=== PATIENT | female | born 1985 | race African-American/Black ===

== ENCOUNTER 2017-01-10 21:35 | Inpatient (IN) ==
[2017-01-10] MEDS ORDERED: LR 4,000 ML ONE (22:00)
[2017-01-10] MEDS ORDERED: GENTAMICIN 80 MG/NS 80 MG/50 ML IVPB IV ONE (22:11)
[2017-01-10] MEDS ORDERED: CLINDAMYCIN 900 MG/NS 900 MG/50 ML IVPB IV ONE (22:11)
[2017-01-10] MEDS ORDERED: PEPCID PO ONE (22:14)
[2017-01-10] MEDS ORDERED: REGLAN IV ONE (22:16)
[2017-01-10] MEDS ORDERED: SODIUM CHLORIDE 0.9% INJ ONE (22:16)
[2017-01-10] MEDS ORDERED: BICITRA PO ONE (22:16)
[2017-01-10] MEDS ORDERED: PEPCID IV ONE (22:16)
[2017-01-10 22:18] LABS: URINE SOURCE VOIDED
[2017-01-10] MEDS: LR 1,000 ML IV SCH ×2 (22:21→23:59)
[2017-01-10 22:22] LABS: BILIRUBIN URINE NEGATIVE (NEGATIVE); BLOOD URINE NEGATIVE (NEGATIVE); CLARITY CLEAR (CLEAR); COLOR YELLOW; GLUCOSE URINE NEGATIVE (NEGATIVE); LEUKOCYTES URINE TRACE (NEGATIVE); NITRITE URINE NEGATIVE (NEGATIVE); PROTEIN URINE NEGATIVE (NEGATIVE); UROBILINOGEN URINE NORMAL
[2017-01-10 22:28] LABS: MANUAL DIFF NEEDED? NO
[2017-01-10 22:29] LABS: BASO% 0.1 % (0.0-0.8); EOS# 0.15 X1000 (0.0-0.7); HEMATOCRIT 36.7 % (37.0-47.0); HEMOGLOBIN 12.6 g/dL (12.0-16.0); IMM GRAN# 0.13 X1000 (0.0-0.04); IMM GRAN% 0.9 % (0.0-0.5); LYMPH# 1.92 X1000 (1.2-3.4); LYMPH% 13.2 % (20.5-51.1); MCH 31.3 PG (27-31); MCHC 34.3 g/dL (33-37); MCV 91.1 FL (81-99); MONO% 7.5 % (1.7-9.3); MPV 12.7 FL (7.4-10.4); NEUT% 77.3 % (42.2-75.2); PLT 133 X1000 (130-400); RBC 4.03 XMIL (4.2-5.4)
--- NOTE | 2017-01-10 23:27 | OB/GYN PROGRESS NOTE ---
Progress Note OB - . OB Progress Note: Laboratory Results - last 24 hr 01/10/17 01/10/17 01/10/17 21:42 22:09 22:09 WBC 14.60 H RBC 4.03 L Hgb 12.6 Hct 36.7 L MCV 91.1 MCH 31.3 H MCHC 34.3 RDW Std Deviation 13.9 Plt Count 133 MPV 12.7 H Immature Gran % (Auto) 0.9 H Neut % (Auto) 77.3 H Lymph % (Auto) 13.2 L [place] % (Auto) 7.5 Eos % (Auto) 1.0 Baso % (Auto) 0.1 Immature Gran # (Auto) 0.13 H Neut # (Auto) 11.28 H Lymph # (Auto) 1.92 [place] # (Auto) 1.10 H Eos # (Auto) 0.15 Baso # (Auto) 0.02 Urine Source VOIDED Urine pH 7.0 Ur Specific [place] 1.010 Urine Protein NEGATIVE Urine Ketones TRACE Urine Blood NEGATIVE Urine Nitrite NEGATIVE Urine Bilirubin NEGATIVE Urine Urobilinogen NORMAL Urine WBC TRACE A Urine Glucose NEGATIVE RPR NON-REACTIVE Patient noted to have late decels down to 90s from 150s julio césar every 1-2 minutes. Patient given bolus, oxygen and placed in left lateral position. Late decels resolved to category 1 tracing. Cervix: 2/60/-2 A/P: 31yo @ 36w6d now with Category 1 tracing -continue to monitor -continue IVF and oxygen Debbei Garcia MD COMPREHENSIVE ADVISOR
[2017-01-10 23:43] LABS: UR AMPHETAMINES QUAL NONE DETECTED (NONE DETECT); UR BARBITUATES QUAL NONE DETECTED (NONE DETECT); UR BENZODIAZEPIN QUAL NONE DETECTED (NONE DETECT); UR CANNABINOIDS QUAL NONE DETECTED (NONE DETECT); UR COCAINE QUAL NONE DETECTED (NONE DETECT); UR MDMA QUAL NONE DETECTED (NONE DETECT); UR METHADONE QUAL NONE DETECTED (NONE DETECT); UR METHAMPHETAMINE QUAL NONE DETECTED (NONE DETECT); UR OPIATES QUAL NONE DETECTED (NONE DETECT); UR OXYCODONE QUAL NONE DETECTED (NONE DETECT); UR PCP QUAL NONE DETECTED (NONE DETECT); UR TCA QUAL NONE DETECTED (NONE DETECT)
[2017-01-10] MEDS: STADOL IV PRN (23:58)
[2017-01-11] MEDS: STADOL IV PRN (06:03)
[2017-01-11] MEDS ORDERED: PITOCIN 30 UNITS/LR 30 UNITS/500 ML IV.SOLN IV SCH (08:56)
--- NOTE | 2017-01-11 09:24 | OB/GYN PROGRESS NOTE ---
Progress Note OB - . OB Progress Note: Vital Signs - 24 hr 01/11/17 07:00 Temperature 97 F L Pulse Rate 85 Respiratory Rate 20 Blood Pressure 118/76 O2 Sat by Pulse Oximetry 100 Laboratory Results - last 24 hr 01/10/17 01/10/17 01/10/17 21:42 21:42 22:09 WBC RBC Hgb Hct MCV MCH MCHC RDW Std Deviation Plt Count MPV Immature Gran % (Auto) Neut % (Auto) Lymph % (Auto) [place] % (Auto) Eos % (Auto) Baso % (Auto) Immature Gran # (Auto) Neut # (Auto) Lymph # (Auto) [place] # (Auto) Eos # (Auto) Baso # (Auto) Urine Source VOIDED Urine pH 7.0 Ur Specific [place] 1.010 Urine Protein NEGATIVE Urine Ketones TRACE Urine Blood NEGATIVE Urine Nitrite NEGATIVE Urine Bilirubin NEGATIVE Urine Urobilinogen NORMAL Urine WBC TRACE A Urine Glucose NEGATIVE Urine Opiates Screen NONE DETECTED Ur Oxycodone Screen NONE DETECTED Urine Methadone Screen NONE DETECTED Ur Barbituates Screen NONE DETECTED Ur Tricyclics Screen NONE DETECTED Ur Phencyclidine Scrn NONE DETECTED Ur Amphetamines Screen NONE DETECTED U Methamphetamines Scrn NONE DETECTED Urine MDMA Screen NONE DETECTED U Benzodiazepines Scrn NONE DETECTED Urine Cocaine Screen NONE DETECTED U Cannabinoids Screen NONE DETECTED RPR NON-REACTIVE Blood Type Antibody Screen 01/10/17 01/10/17 22:09 22:09 WBC 14.60 H RBC 4.03 L Hgb 12.6 Hct 36.7 L MCV 91.1 MCH 31.3 H MCHC 34.3 RDW Std Deviation 13.9 Plt Count 133 MPV 12.7 H Immature Gran % (Auto) 0.9 H Neut % (Auto) 77.3 H Lymph % (Auto) 13.2 L [place] % (Auto) 7.5 Eos % (Auto) 1.0 Baso % (Auto) 0.1 Immature Gran # (Auto) 0.13 H Neut # (Auto) 11.28 H Lymph # (Auto) 1.92 [place] # (Auto) 1.10 H Eos # (Auto) 0.15 Baso # (Auto) 0.02 Urine Source Urine pH Ur Specific [place] Urine Protein Urine Ketones Urine Blood Urine Nitrite Urine Bilirubin Urine Urobilinogen Urine WBC Urine Glucose Urine Opiates Screen Ur Oxycodone Screen Urine Methadone Screen Ur Barbituates Screen Ur Tricyclics Screen Ur Phencyclidine Scrn Ur Amphetamines Screen U Methamphetamines Scrn Urine MDMA Screen U Benzodiazepines Scrn Urine Cocaine Screen U Cannabinoids Screen RPR Blood Type A POSITIVE Antibody Screen NEGATIVE Patient continues to report contractions. Cervix: /-2 A/P: 31yo @ 37w0d in latent labor -augment labor with pitocin due to non-reassuring heart tracing Debbie Garcia MD PROTECTIVE SIGNAL OPERATOR
[2017-01-11] MEDS ORDERED: FENTANYL-BUPIV-NS 2 MCG-0.1% 200 ML EPIDURAL PRN (09:43)
[2017-01-11] MEDS: LR 1,000 ML IV SCH (09:50)
[2017-01-11] MEDS ORDERED: MINERAL OIL ONE (14:43)
[2017-01-11] MEDS ORDERED: XYLOCAINE-MPF 1% ONE (14:43)
[2017-01-11] MEDS ORDERED: MOTRIN PO PRN (16:05)
[2017-01-11] MEDS ORDERED: XYLOCAINE-MPF 1% INJ PRN (16:05)
[2017-01-11] MEDS ORDERED: HYDROXYZINE IM PRN (16:05)
[2017-01-11] MEDS ORDERED: BENADRYL PO PRN (16:05)
[2017-01-11] MEDS ORDERED: HYDROXYZINE PO PRN (16:05)
[2017-01-11] MEDS ORDERED: AMBIEN PO PRN (16:05)
[2017-01-11] MEDS ORDERED: PERCOCET-5 PO PRN (16:05)
[2017-01-11] MEDS ORDERED: PITOCIN IM PRN (16:05)
[2017-01-11] MEDS ORDERED: PITOCIN 30 UNITS/LR 30 UNITS/500 ML IV.SOLN IV ONE (16:05)
[2017-01-11] MEDS ORDERED: PITOCIN 20 UNITS/LR 20 UNITS/1,000 ML IV.SOLN IV SCH (16:05)
[2017-01-11] MEDS ORDERED: PERI MEDS (DERMOPLAST/NUPERCAINAL/TUCKS) MISC PRN (16:05)
[2017-01-11] MEDS ORDERED: BENADRYL IV PRN (16:05)
[2017-01-11] MEDS ORDERED: MINERAL OIL PO PRN (16:05)
[2017-01-11] MEDS ORDERED: CYTOTEC PO PRN (16:05)
[2017-01-11] MEDS ORDERED: PERICOLACE PO SCH (21:00)
[2017-01-12] MEDS: PERCOCET-10 PO PRN ×5 (02:42→21:19)
[2017-01-12 05:51] LABS: MANUAL DIFF NEEDED? NO
[2017-01-12 06:04] LABS: BASO% 0.1 % (0.0-0.8); EOS# 0.15 X1000 (0.0-0.7); EOS% 1.2 % (0.0-10.0); HEMATOCRIT 33.1 % (37.0-47.0); HEMOGLOBIN 11.1 g/dL (12.0-16.0); IMM GRAN# 0.08 X1000 (0.0-0.04); IMM GRAN% 0.6 % (0.0-0.5); LYMPH# 2.06 X1000 (1.2-3.4); LYMPH% 16.4 % (20.5-51.1); MCH 30.9 PG (27-31); MCHC 33.5 g/dL (33-37); MCV 92.2 FL (81-99); MONO# 1.22 X1000 (0.11-0.59); MONO% 9.7 % (1.7-9.3); PLT 125 X1000 (130-400); RBC 3.59 XMIL (4.2-5.4)
[2017-01-12] MEDS: FLINTSTONES COMPLETE PO SCH (10:16)
[2017-01-12] MEDS ORDERED: PNEUMOVAX 23 IM ONE (11:00)
[2017-01-12] MEDS ORDERED: MOTRIN LIQUID PO PRN (16:35)
[2017-01-12] MEDS: MOTRIN LIQUID PO PRN (21:20)
--- NOTE | 2017-01-13 03:49 | OPERATIVE NOTE ---
PROCEDURE DATE: 01/11/2017 PROCEDURE PERFORMED: Spontaneous vaginal delivery. ADMISSION DIAGNOSIS: A 31-year-old, G5, P1-2-1-3, at 36 weeks and 6 days, with labor and non-reassuring heart tracing. DELIVERING PHYSICIAN: Dr. Debbie Garcia. ANESTHESIA: Epidural. COMPLICATIONS: None. DELIVERY SUMMARY: This 31-year-old, G5, P1-2-1-3, at 37 weeks and 0 days underwent augmentation of labor due to non-reassuring heart tracing with subsequent uncomplicated spontaneous vaginal delivery. The 's head was delivered atraumatically. The was delivered atraumatically and placed upon the mother's abdomen with the Pediatric team in attendance. The was bulb-suctioned at delivery.The umbilical cord was clamped and cut. The placenta was delivered intact spontaneously, showing a 3- vessel cord. No lacerations noted. Mother and were stable in the delivery room. The weighed 2095 g, with Apgars 7 and 10. cc: Debbie Garcia MD [facility]
[2017-01-13] MEDS: MOTRIN LIQUID PO PRN (08:04)
[2017-01-13] MEDS: FLINTSTONES COMPLETE PO SCH (08:04)
[2017-01-13 08:09] VITALS: BP 123/86
--- NOTE | 2017-01-14 16:19 | OB/GYN PROGRESS NOTE ---
Progress Note OB - . OB Progress Note: Patient doing well without complaint. Tolerating diet. Ambulating and voiding without difficulty. Pain is well controlled. . Gen: NAD, alert Abd: soft, nontender, fundus firm and 1 finger breadth below the umbilicus Pelvis: minimal lochia rubra Ext: no edema, non-tender, Bailey's- A/P: 31yo who is PPD#1 s/p , doing well -continue routine care -encourage ambulation -continue PO pain meds -continue regular diet Dispo: home tomorrow Debbie Garcia MD EXECUTIVE STEWARD
--- NOTE | 2017-02-27 17:31 | DISCHARGE SUMMARY ---
ADMISSION DATE: 01/10/2017 DISCHARGE DATE: 01/13/2017 PROCEDURE: Spontaneous vaginal delivery. ADMISSION DIAGNOSIS: 31-year-old G5, P1-2-1-3 at 36 weeks and 6 days in labor with nonreassuring heart tracing. DISCHARGE DIAGNOSIS: Status post spontaneous vaginal delivery at 37 weeks and 0 days of a weighing 2095 g with 7 and 10. DELIVERING PHYSICIAN: Dr. Debbie Garcia. HOSPITAL COURSE: This 31-year-old G5, P1-2-1-3 at 36 weeks and 6 days was admitted in labor with nonreassuring heart tracing. The patient underwent an uncomplicated spontaneous vaginal delivery at 37 weeks and 0 days. Hospital course was unremarkable and patient was discharged home day #2. Discharge Exam General: No acute distress. Alert and oriented. Abdomen: Soft, nontender. Fundus firm at 1 fingerbreadth below the umbilicus. Pelvic: Minimal lochia rubra. Extremities: No edema. Nontender. Homans sign negative. DISCHARGE INSTRUCTIONS: Patient may continue regular diet and is to have nothing per vagina. DISCHARGE MEDICATIONS: Ibuprofen, multivitamin and Colace. DISCHARGE FOLLOWUP: Patient is to follow with Dr. Garcia in 6 weeks. cc: Debbie Garcia MD [facility]
== END 2017-01-13 12:15 | disposition home or self-care (01) ==
LOC: OPLD 21:35 → P.LD 21:38
PROVIDERS: ADMIT Student in an Organized Health Care Education/Training Program; ATTEND Student in an Organized Health Care Education/Training Program